=== PATIENT | female | born 1995 | race Caucasian/White ===

== ENCOUNTER 2020-12-22 14:42 | Outpatient (CLI) | payer OTHER, SELFPAY ==
--- NOTE | 2020-12-22 15:00 | US_ITS ---
WS: [id number] RIGHT DIGITAL MAMMOGRAPHY WITH CAD CLINICAL INFORMATION: N63.10 - Unspecified lump in the right breast, unspecified quadrant COMPARISON: None. TECHNIQUE: 4 views of the right breast were obtained. FINDINGS: The right breast is composed of heterogeneous fibroglandular density tissue, which can limit the dete ction of small underlying mass lesions. In the area of palpable concern, there is dense underlying br east tissue. No visualized mammographic abnormalities. Ultrasound is pending. ULTRASOUND BREAST RIGHT TECHNIQUE: Ultrasound right breast focused area of concern. CLINICAL INFORMATION: N63.10 - Unspecified lump in the right breast, unspecified quadrant COMPARISON: None. FINDINGS: Ultrasound right breast the 6 clock position area of concern. 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 No cystic or solid lesions. No suspicious lesions to target f or biopsy. Recommend annual screening mammography age 40. US/US breast RT limited* [id number] IMPRESSION: BI-RADS: 2-Benign FOLLOW UP: Age 39 RECOMMEND ANNUAL SCREENING MAMMOGRAPHY AGE 39
--- NOTE | 2020-12-22 15:30 | MM_ITS ---
WS: [id number] RIGHT DIGITAL MAMMOGRAPHY WITH CAD CLINICAL INFORMATION: N63.10 - Unspecified lump in the right breast, unspecified quadrant COMPARISON: None. TECHNIQUE: 4 views of the right breast were obtained. FINDINGS: The right breast is composed of heterogeneous fibroglandular density tissue, which can limit the dete ction of small underlying mass lesions. In the area of palpable concern, there is dense underlying br east tissue. No visualized mammographic abnormalities. Ultrasound is pending. ULTRASOUND BREAST RIGHT TECHNIQUE: Ultrasound right breast focused area of concern. CLINICAL INFORMATION: N63.10 - Unspecified lump in the right breast, unspecified quadrant COMPARISON: None. FINDINGS: Ultrasound right breast the 6 clock position area of concern. 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 No cystic or solid lesions. No suspicious lesions to target f or biopsy. Recommend annual screening mammography age 39. MM/[place] [id number] IMPRESSION: BI-RADS: 2-Benign FOLLOW UP: Age 39 RECOMMEND ANNUAL SCREENING MAMMOGRAPHY AGE 39
== END 2020-12-22 14:43 | disposition home or self-care (01) ==
LOC: RAD 14:45
PROVIDERS: PCP Electrodiagnostic Medicine; Visit Provider Nurse Practitioner Women's Health
DX: N63.10 Unspecified lump in the right breast, unspecified quadrant (principal)
CPT/HCPCS: 76642; 77065

== ENCOUNTER → 2020-12-23 10:53 | Outpatient (BNVA) | payer OTHER, SELFPAY | PROVIDERS: PCP Electrodiagnostic Medicine; Visit Provider Obstetrics & Gynecology | DX: N89.6 Tight hymenal ring (principal); Z20.822 Contact with and (suspected) exposure to COVID-19 | CPT/HCPCS: 87635 ==

== ENCOUNTER 2020-12-29 07:45 | Day surgery (SDC) | payer OTHER, SELFPAY ==
[2020-12-26 13:35] VITALS: BMI 23.3
--- NOTE | 2020-12-26 13:46 | ANES.PREANE2 ---
Pre-Anesthetic Assessment Pre-Anesthetic Assessment: Height/Weight: Height 1.65 m Weight 63.503 kg Preop Diagnosis: Tight hymenal ring Proposed Procedure: Operation Date: 12/29/20 09:00 Proposed Procedures p Hymenectomy 87595 N89.6(Not Applicable) - Krista Conroy MD Familial anesthetic complications: None Social: Social History: No alcohol and No tobacco Exam: Pre-Anes Outpt Exam: alert, oriented x 3, clear to auscultation bilaterally and regular rate & rhythm Airway: Cervical ROM: WNL MP: 1 Dentition: Full Anesthetic Plan: ASA status: 1 Anesthesia: General Risk of > 500 ml blood loss (7ml/kg in children): No PFSH Anesthesia PFSH: Medical History No pertinent past medical history neghx: htn,dm,thyroid,dvt/pe PCP: Dr. Mena Surgical History Hx of wisdom tooth extraction (~2014) Family History Mother No problems noted. Denies family history of Colon cancer Ovarian cancer Diabetes Heart disease Hypercholesteremia Breast cancer Hypertension Uterine cancer Thyroid disease Stroke Female Reproductive History: Date of last menstrual period: 12/24/20 Data Anesthesia Cardiac Studies: No Data to Display
[2020-12-29] VITALS (7 sets, daily range): BP systolic 100–128; BP diastolic 57–69; PULSE 81–104; RESP 16–18; TEMP 36.2–37.4; O2SAT 97–99
[2020-12-29] MEDS: acetaminophen 1,000 MG/100 ML PIGGYBACK 400 MG IV (08:17)
[2020-12-29] MEDS: sodium chloride 0.9% 1,000 ML 30 ML IV (08:22)
[2020-12-29] MEDS: CELEcoxib 200 mg Capsule 400 MG PO (08:23)
[2020-12-29] MEDS: ketorolac 30 mg/mL INJ IVP (08:23)
--- NOTE | 2020-12-29 09:31 | W.PM.OPSUD ---
Surgery/Procedure H&P Update DATE OF PROCEDURE: December 29, 2020 DATE H&P PERFORMED: 12/26/20 H&P UPDATE INFORMATION: I have reviewed H&P completed within last 30 days, I have examined patient prior to procedure and No changes to prior documentation PREOP DIAGNOSIS: imperforate hymen PLANNED PROCEDURE: Operation Date: 12/29/20 09:10 Proposed Procedures p Hymenectomy 06806 N89.6(Not Applicable) - Krista Conroy MD
--- NOTE | 2020-12-29 10:12 | PC.NURSE ---
thin prep pap smear ordered
--- NOTE | 2020-12-29 10:29 | PM.OP ---
Operative Report Date of procedure: December 29, 2020 Pre-op Diagnosis: imperforate hymen Post-op diagnosis: same Procedure Done: Hymenotomy Pathology: none sent Surgeon: Krista Conroy Anesthesia: General Estimated blood loss (mL): 20 IV fluids (mL): 1,000 Complications: none Findings: Redundant hymen. Normal vagina and cervix. No evidence of any vaginal septum Condition: stable Disposition: PACU Procedure: The patient was taken to the operating room where general anesthesia was administered and found to be adequate. She is prepped and draped in the normal sterile fashion in the dorsal lithotomy position in [facility]. An Allis clamp was placed at 6:00 and 12:00 on the hymen. The hymen was then incised at 2:00 4:00 8:00 and 10:00. The vaginal opening was normalized at this point. A speculum was placed into the vagina and a Pap smear performed. The vagina was explored both visually and bimanually to assure that there were no abnormalities. No horizontal or vertical septums were noted. 3-0 Vicryl was used to close the vaginal mucosa in areas that it was bleeding. There was good hemostasis. Vaginal packing was placed to hold pressure on the incisions. The patient tolerated the procedure well. Sponge lap and needle counts were correct x3. She was taken to the recovery room in stable condition.
--- NOTE | 2020-12-29 10:35 | PM.DCS ---
Discharge Providers Date of Discharge: December 29, 2020 Attending Provider at Discharge: Krista Conroy MD Primary Care Provider: Salvador Mena DO Diagnoses at Discharge Discharge Diagnosis (1) Post-operative state: Status: Acute Reason for Visit Reason for Visit: hymenotomy Hospital Course Hospital Course The patient was admitted for surgery. She did well postoperatively and was ready for discharge. Discharge Data Data Completed and Pending: Pending at discharge Category Date Time Status OR HCG Qualitativ e Urine Routine Lab 12/29/20 06:50 Uncollected Thinprep Pap Refl ex HPV mRNA Routin e Lab 12/29/20 10:10 Ordered Vitals: Last Vital Signs Temp 97.2 F L 12/29/20 10:26 Pulse 88 12/29/20 10:29 Resp 16 12/29/20 10:29 BP 100/64 12/29/20 10:29 Pulse Ox 97 12/29/20 10:29 Discharge Plan Discharge Patient Disposition: Home Condition: Stable Prescriptions: Continued No Known Home Medications RF: 0 Discharge Orders: Discharge Order (Routine); Ordered 12/29/20 Ordered By: Krista Conroy Discharge Attestations Time Spent in Discharge Care*: less than 30 min Quality Metrics Clinical Quality Measures During this hospital stay, did patient experience: None Coding Level of Care Code Acute g FW MS note Diagnoses Post-operative state Z98.890
--- NOTE | 2020-12-29 10:37 | SUR.PHASEI ---
pt awake alert talkative, denies pain wants water to sip on , vss.
[2020-12-29 10:49] LABS: OR HCG Qualitative Urine Negative (Negative)
[2020-12-29] MEDS: ondansetron 2 mg/ML SDV 2 mL 4 MG IVP (11:06)
--- NOTE | 2020-12-29 20:49 | ANE.PACU2 ---
Inpatient post-anesthesia follow up: Airway intact: Yes Vital signs: Temperature 97.2 F Pulse Rate 81 Respiratory Rate 18 Blood Pressure 109/68 Pulse Oximetry 99 Oxygen Delivery Me thod Room Air Oxygen Flow Rate Fraction of Inspir ed Oxygen Hydration adequate: Yes Nausea and vomiting: No Pain level: 3 Mental status: Baseline
[2021-01-05 10:34] LABS: Pap Source Cervix
== END 2020-12-29 12:00 | disposition home or self-care (01) ==
PROVIDERS: Anesthesiology; PCP Electrodiagnostic Medicine; Visit Provider Obstetrics & Gynecology
PROC: (CPT 56700; principal; 2020-12-29 09:00)
DX: Q52.3 Imperforate hymen (principal)
CPT/HCPCS: 56442; 81025; 84703; 88175; 96365; 96374; 96375; J0690; J1100; J1885; J2250; J2405; J2704; J3010; J3490; J7030

== ENCOUNTER → 2024-04-29 11:57 | Outpatient (BNVA) | payer BC, SELFPAY | PROVIDERS: PCP Electrodiagnostic Medicine; Visit Provider Nurse Practitioner Women's Health | DX: Z12.4 Encounter for screening for malignant neoplasm of cervix (principal); Z01.419 Encounter for gynecological examination (general) (routine) without abnormal findings; R87.610 Atypical squamous cells of undetermined significance on cytologic smear of cervix (ASC-US); R87.810 Cervical high risk human papillomavirus (HPV) DNA test positive | CPT/HCPCS: 87624 ==